=== PATIENT | female | born 1990 | race Two or more races ===

== ENCOUNTER 2022-01-31 12:33 | Emergency (ER) | payer BC ==
[~2022-01-31] VITALS: Ht 160 cm; Wt 68.0 kg
[2022-01-31] MEDS ORDERED: TUSSIN DM CLEA118 M1 PO (16:31)
[2022-01-31] MEDS ORDERED: MOLNUPIRAVIR (200 MG PO (16:31)
== END 2022-01-31 16:41 | disposition home or self-care (01) ==
LOC: ER 12:33
DX: U07.1 COVID-19 (principal)